=== PATIENT | female | born 1980 | race Caucasian/White ===

== ENCOUNTER 2020-02-06 19:54 | Emergency (ER) | payer OTHER, SELFPAY ==
--- NOTE | 2020-02-06 20:04 | ED.FEMALEGU ---
HPI - Female Genitourinary General Chief complaint: Urogenital-Female Stated complaint: STDs Time Seen by Provider: 02/06/20 20:04 Source: patient and RN notes reviewed History of Present Illness HPI Narrative: Patient is a 40-year-old female who presents the urgent care with complaints of possible trichomonas due to itchy vaginal green discharge. Patient states that it started yesterday and she has had trichomonas in the past and was treated in the emergency room for it. Patient states that she will follow-up with her [employer] on Sunday but was wanting treatment now. Patient states she is also spotting and does not wish to have a vaginal exam at our facility. Patient states that she is certain that she has an STD . No other acute complaints. Denies of any abdominal pain, nausea, vomiting. No acute distress noted. Patient read the plan of care. Related Data Allergies Allergy/AdvReac Type Severity Reaction Status Date / Time No Known Allergies Allergy Verified 02/06/20 20:07 Review of Systems Review of Systems: Narrative: CONSTITUTIONAL: Denies fever, chills, or sweats. EYES: Denies visual changes, redness, or discharge. ENT: Denies rhinorrhea, congestion, sore throat, or otalgia. CARDIOVASCULAR: Denies chest pain, palpitations, or edema. RESPIRATORY: Denies cough or dyspnea. GASTROINTESTINAL: Denies abdominal pain, nausea, vomiting, or diarrhea. GENITOURINARY: Reports of itchy vaginal green discharge with some spotting SKIN: Denies rash or itching. MUSCULOSKELETAL: Denies back pain, joint pain, or myalgia. NEUROLOGIC: Denies headache, numbness, or weakness. All other systems reviewed are negative, except as documented in HPI. PMFSH Comments At the time of my signature, I reviewed and agree with the nursing past medical, surgical, social, and family history. There is no relevant family history pertinent to the patient complaint. Exam Narrative: Exam Narrative: GENERAL: This is a well-nourished, well-developed patient, in no apparent distress. HEAD: normocephalic, atraumatic. EYES: PERRL. Sclera clear/white. Vision is grossly intact. EARS: External ears normal NOSE: External nose normal with no obvious nasal discharge, nares without redness, no rhinorrhea. THROAT: Mucous membranes moist NECK: Neck supple : Deferred vaginal exam SKIN: warm, intact with no suspicious lesions or rash, good texture and turgor. NEURO: awake, alert, and oriented to person, place and time. There were no obvious focal neurologic abnormalities. EXTREMITIES: No clubbing, cyanosis, or edema. Course Vital Signs Vital signs: Vital Signs Temperature 98.2 F 02/06/20 20:05 Pulse Rate 101 H 02/06/20 20:05 Respiratory Rate 16 02/06/20 20:05 Blood Pressure 152/98 H 02/06/20 20:05 Pulse Oximetry 100 02/06/20 20:05 Temperature 98.2 F 02/06/20 20:05 Pulse Rate 101 H 02/06/20 20:05 Respiratory Rate 16 02/06/20 20:05 Blood Pressure 152/98 H 02/06/20 20:05 Pulse Oximetry 100 02/06/20 20:05 Reviewed?patient is informed that they may have pre-hypertension or hypertension based on a blood pressure reading in the department. I recommend the patient call the primary care provider listed on their discharge instructions or a physician of their choice this week to arrange follow-up for further evaluation of possible pre-hypertension or hypertension. MDM - Female Genitourinary MDM Narrative Medical decision making narrative: Advised the patient to complete her prescription oral antibiotic regimens as prescribed. Patient will be treated for trichomonas, chlamydia and gonorrhea. However patient is aware that she needs to remain abstinent from any sexual activity. If she is positive for the above, she needs to let her sexual partners know and continue to remain abstinent for the last 14 days. After antibiotics are completed, take the one-time dose of Diflucan-do not take the Diflucan with azithromycin. There is severe interaction with the
[2020-02-06 20:05] VITALS: BP 152/98; PULSE 101; RESP 16; TEMP 36.8; O2SAT 100
== END 2020-02-06 20:18 | disposition home or self-care (01) ==
PROVIDERS: Emergency Provider Nurse Practitioner Family; PCP Family Medicine
DX: Z20.2 Contact with and (suspected) exposure to infections with a predominantly sexual mode of transmission (principal); N89.8 Other specified noninflammatory disorders of vagina
CPT/HCPCS: 87491; 87591; 87661; 99203; G0463

== ENCOUNTER 2020-08-16 12:12 | Outpatient (CLI) | payer OTHER, SELFPAY ==
--- NOTE | ~2020-08-16 | MMUS_ITS ---
EXAMINATION: MM diagnostic vishal BI w kris, US breast RT limited HISTORY: Milky discharge, right breast. [place] sized lump, high right axillary area TECHNIQUE: ML, MLO and craniocaudal 3-D tomosynthesis images of both breasts were performed and synth etic 2-D images were generated. CAD analysis was submitted and interpreted. High resolution targeted right axillary breast ultrasound was performed. COMPARISON: None BREAST PARENCHYMAL COMPOSITION: There are scattered areas of fibroglandular density. FINDINGS: MAMMOGRAPHIC FINDINGS: No suspicious mass or architectural distortion, malignant calcification, skin thickening or retractio n is detected. ULTRASOUND: There is a benign appearing 8 x 20 mm lymph node at the area of clinical complaint of a palpable lump . There is relatively uniform thickness and echogenicity of the cortex. IMPRESSION: 1. No mammographic evidence of malignancy 2. Routine annual mammographic screening is recommended. BI-RADS Category 2: Benign finding(s). Reviewed, dictated and finalized at location A. RRING TECHNICIAN IMPRESSION: 1. No mammographic evidence of malignancy 2. Routine annual mammographic screening is recommended. BI-RADS Category 2: Benign finding(s).
== END 2020-08-16 12:13 | disposition home or self-care (01) ==
PROVIDERS: PCP Nurse Practitioner; Visit Provider Nurse Practitioner
DX: N63.11 Unspecified lump in the right breast, upper outer quadrant (principal)
CPT/HCPCS: 76642; 77062; 77066; G0279